=== PATIENT | male | born 1990 | race Caucasian/White ===

== ENCOUNTER 2018-05-28 07:16 | Emergency (ER) | payer MEDICAID ==
[~2018-05-28] VITALS: Ht 157.5 cm; Wt 60.0 kg
[2018-05-28 07:46] VITALS: BP 120/79
[2018-05-28] MEDS ORDERED: LORazepam 1 MG TABLET PO ONE (08:30)
== END 2018-05-28 09:45 | disposition home or self-care (01) ==
LOC: EMS 07:19
DX: F41.9 Anxiety disorder, unspecified (principal); K12.0 Recurrent oral aphthae; R21 Rash and other nonspecific skin eruption